=== PATIENT | female | born 1960 | race African-American/Black ===

== ENCOUNTER 2021-01-16 09:59 | Emergency (ER) | payer OTHER ==
[~2021-01-16] VITALS: Ht 157.5 cm; Wt 56.7 kg
[~2021-01-16 09:59] MED LIST: NAPROXEN 375 M375 M1 PO; NO HOME MEDS; NORCO 5-325 TA1 EACH PO; NORFLEX100 MG PO
[2021-01-16 11:10] LABS: URINE BILIRUBIN NEGATIVE (Negative); URINE BLOOD NEGATIVE (Negative); URINE CLARITY CLEAR; URINE COLOR YELLOW; URINE GLUCOSE-RANDOM* NEGATIVE (Negative); URINE KETONES NEGATIVE (Negative); URINE LEUKOCYTES-REFLEX NEGATIVE (Negative); URINE NITRITE-REFLEX NEGATIVE (Negative); URINE PROTEIN (DIPSTICK) NEGATIVE (Negative); URINE SPECIFIC GRAVITY 1.015 (1.005-1.035); URINE UROBILINOGEN 0.2 E.U./dl (0.2-1.0)
[2021-01-16 12:10] LABS: ABSOLUTE NEUTROPHILS 3.1 thou/uL (1.4-8.2); BASOPHILS 1.1 % (0.0-2.0); EOSINOPHILS 0.8 % (0.0-3.0); HEMATOCRIT 39.3 % (37.0-47.0); HEMOGLOBIN 13.2 gm/dL (12.0-15.0); LYMPHOCYTES 34.6 % (24.0-44.0); MCH 31.3 pg (26.0-34.0); MCHC 33.5 g/dL (28.0-37.0); MCV 93.4 fL (80.0-100.0); MONOCYTES 4.1 % (1.0-8.0); PLATELET COUNT 326 thou/uL (150-400); POLYS 59.4 % (36.0-66.0); RDW 13.4 % (10.5-14.5); WBC 5.2 thou/uL (4.0-11.0)
[2021-01-16 14:00] LABS: ALBUMIN 3.5 g/dL (3.4-5.0); CALCIUM 8.8 mg/dL (8.5-10.1); CREATININE 0.7 mg/dL (0.6-1.0); POTASSIUM 3.9 mmol/L (3.5-5.1); TOTAL BILIRUBIN 0.2 mg/dL (0.2-1.0); TOTAL PROTEIN 7.2 g/dL (6.4-8.2)
[2021-01-16 14:21] VITALS: BP 149/67
[2021-01-16] MEDS ORDERED: NORCO5 PO (16:31)
[2021-01-16] MEDS ORDERED: CIPRO500 M1 PO (16:31)
[2021-01-16] MEDS ORDERED: ZOFRAN ODT4 MG PO (16:31)
[2021-01-16] MEDS ORDERED: FLAGYL500 M1 PO (16:31)
== END 2021-01-16 16:35 | disposition home or self-care (01) ==
LOC: ER 09:59
PROVIDERS: Emergency Medicine; Nurse Practitioner Family
DX: K52.9 Noninfective gastroenteritis and colitis, unspecified (principal); R18.8 Other ascites; K21.9 Gastro-esophageal reflux disease without esophagitis